=== PATIENT | male | born 1980 | race Caucasian/White ===

== ENCOUNTER 2016-05-19 23:55 | Emergency (ER) ==
[2016-05-20] MEDS ORDERED: XYLOCAINE 1%/EPI 1:100,000 ONE (00:27)
[2016-05-20] MEDS ORDERED: DERMABOND TOP ONE (00:28)
--- NOTE | 2016-05-20 00:29 | PROVIDER DOCUMENTATION ---
HPI-Rash/Wound/ReCheck - General Source: patient - History of Present Illness-Dermatology Location: reports: face (chin) Quality: reports: painful Severity: reports: mild Onset/Duration: reports: just prior to arrival Timing: reports: still present Context/Associated Symptoms: reports: laceration Identifiable cause?: Yes (grinder chipper) Locality of Occurance: Home Similar Symptoms Previously?: No Recently seen or treated by another doctor?: No <Aydee Bentley - Last Filed: 05/20/16 00:25> <Josue Hernández - Last Filed: 05/20/16 01:00> - General Chief Complaint: Laceration[s] Stated Complaint: lac to chin Time Seen by Provider: 05/20/16 00:14 Allergies/Adverse Reactions: Allergies Allergy/AdvReac Type Severity Reaction Status Date / Time No Known Allergies Allergy Verified 05/20/16 00:05 Home Medications: Home Medication List Medication Instructions Recorded Confirmed Last Taken Type ATORVAstatin [Lipitor] 40 mg PO QHS 02/11/16 05/20/16 05/19/16 05:00 History Aspirin [Aspir-Low] 81 mg PO DAILY 02/11/16 05/20/16 05/19/16 05:00 History Hydrocodone/Acetaminophen [[place] 1 tab PO TID PRN 02/11/16 05/20/16 05/19/16 19: 00 History 10-325 Tablet] Lisinopril 20 mg PO DAILY 02/11/16 05/20/16 05/19/16 05:00 History Metoprolol Succinate E.r. [Toprol 50 mg PO DAILY 02/11/16 05/20/16 05/18/16 21: 00 History Xl] Prasugrel [Effient] 10 mg PO DAILY 02/11/16 05/20/16 05/19/16 05:00 History Clindamycin [Cleocin] 150 mg PO Q6HR #20 capsule 05/20/16 Unknown Rx Mupirocin Calcium [Bactroban] 15 gm TP BID #1 cream..g. 05/20/16 Unknown Rx - History of Present Illness-Dermatology Nature of Presenting Problem: 35 year old M presents to the ED with a cc of a chin laceration. Pt states that he was using a grinder chipper and it bounced back and cut his chin. PT states that he is on a blood thinner and on a Aspirin regiment. (Aydee Bentley) Review of Systems - Adult - REVIEW OF SYSTEMS - ADULT Constitutional: denies: chills, fever Eyes: denies: blurred vision, double vision Ears, Nose, Mouth & Throat: reports: no symptoms reported Cardiovascular: reports: no symptoms reported Respiratory: reports: no symptoms reported Gastrointestinal: reports: no symptoms reported Genitourinary: reports: no symptoms reported Musculoskeletal: denies: muscle aches, muscle weakness Integumentary: reports: other (laceration). denies: skin sores/ulcer Neurological: reports: no symptoms reported Psychiatric: reports: no symptoms reported Endocrine: reports: no symptoms reported Hematologic/Lymphatic: reports: no symptoms reported Allergic/Immunologic: reports: no symptoms reported All Other Systems: Reviewed and Negative <Aydee Bentley - Last Filed: 05/20/16 00:25> Past History - Adult - PAST MEDICAL HISTORY-ADULT Review of Records: reports: Nursing Assessment Review, Medications Reviewed Major Childhood Illnesses: reports: denies history Cardiovascular: reports: PA - PRIOR SURGERIES/PROCEDURES Surgical/Procedure History: reports: cardiac stent, orthopedic (extremity) - IMMUNIZATION STATUS Childhood Immunizations: See Nurse Assessment Flu Vaccine: See Nurse Assessment - SOCIAL HISTORY Smoking: cigarettes, less than 1 pack/day Provider spent 3-5 mins advising pt. on dangers of tobacco.: Discussed manners to quit use, and f/u contacts for add'l counseling. Substance Use: none/never Alcohol Use Frequency: never <Ayede Bentley - Last Filed: 05/20/16 00:25> Physical Exam-General - PHYSICAL EXAM-ADULT Initial Vital Signs Reviewed: Yes - CONSTITUTIONAL General Appearance: appears well, alert, no apparent distress - RESPIRATORY Respiratory: no respiratory distress - CARDIOVASCULAR Cardiovascular: regular rate, rhythm - MUSCULOSKELETAL Extremity: normal inspection - PSYCHIATRIC Psych/Mental Status: normal mood/affect, normal thought content, normal thought process, oriented x 3 <Aydee Bentley - Last Filed: 05/20/16 00:25> Progress <Aydee Bentley - Last Filed: 05/20/16 00:25> <Josue Hernández - Last Filed: 05/20/16 01:00> - PLAN OF CARE/RESULTS Progress/Plan/Lab Results: Orders Category Date Time Status Laceration Set up DIRECTED Care 05/20/16 00:31 Active Cyanoacrylate Tissue Adhesive [Dermabond] Med 05/20/16 00:28 Discontinued 1 each TOP NOW ONE Lidocaine 1%/Epi 1:100,000 [Xylocaine 1%/Epi 1:100,000] Med 05/20/16 00:30 Discontinued 10 ml INJ NOW ONE Lidocaine 1%/Epi 1:100,000 [Xylocaine 1%/Epi 1:100,000] Med 05/20/16 00:27 Discontinued 50 ml .ROUTE .STK-MED ONE Vital Signs - 24 hr 05/19/16 23:57 Temperature 98.4 F Pulse Rate 87 Respiratory 18 Rate Blood Pressure 169/114 O2 Sat by Pulse 98 Oximetry (Josue Hernández) Procedures - LACERATION/WOUND REPAIR/FB Chin Wound Location: Other: chin Wound Length: 2 inch very shallow Wound's Depth, Shape: superficial Wound Explored/Foreign Body: clean Irrigated with Saline?: Yes Prepped with: Hibiclens Anesthetic: 1%, Lidocaine w/ Epinephrine Volume of Anesthetic (ml's): 5 Wound Repaired with: Dermabond Sterile Dressing Applied?: Yes <Josue Hernández - Last Filed: 05/20/16 01:00> Departure <Aydee Bentley - Last Filed: 05/20/16 00:25> - Departure Time of Disposition Order: 00:57 Certified Medical Emergency: Emergent <Josue Hernández - Last Filed: 05/20/16 01:00> - Departure DIAGNOSIS: Laceration Disposition: HOME 01 Condition: Good Additional Instructions: follow up with pcp if needed ED Follow Up Instructions: You have been treated by a care provider in the Emergency Department. These instructions are being provided to you so you can have an understanding of how to care for yourself upon discharge. Upon discharge from the Emergency Department, you are responsible for making arrangements for follow-up care by a physician of your choice. Take all prescribed medications as directed. Return to the Emergency Department immediately for any new or worsening symptoms. You may call the Physician Referral phone number at [phone] to obtain a list of Physicians who are taking new patients. Prescriptions: Clindamycin [Cleocin] 150 mg PO Q6HR #20 capsule Mupirocin Calcium [Bactroban] 15 gm TP BID #1 cream..g. Attestation - Scribe Verification/Attestation Scribe:: Aydee Bentley Acting as Scribe for:: Josue Hernández Scribe documention review:: This chart was documented by a scribe and accurately reflects the service the provider performed and the decisions made by the provider. <Aydee Bentley - Last Filed: 05/20/16 00:25> - Physician/ AONOP Attestation Patient care was provided by Advanced Practice Provider:: Yes Advanced Practice Provider:: Josue Hernández Advanced Practice Provider documentation review:: The Mid-level provider documentation, treatment plan and medical decision making was reviewed by the physician who agrees with all treatment and medical decision making by the P. <Josue Hernández - Last Filed: 05/20/16 01:00> Physician Attestation - Physician Attestation I, the provider, attest to the following statement:: Josue Hernández Physician documentation Attestation:: This documentation recorded by the scribe accurately reflects the service I personally performed and the decisions made by me. <Aydee Bentley - Last Filed: 05/20/16 00:25> - Physician Attestation I, the provider, attest to the following statement:: Josue Hernández Physician documentation Attestation:: This documentation recorded by the scribe accurately reflects the service I personally performed and the decisions made by me. <Josue Hernández - Last Filed: 05/20/16 01:00>
[2016-05-20] MEDS ORDERED: XYLOCAINE 1%/EPI 1:100,000 INJ ONE (00:30)
[2016-05-20 01:19] VITALS: BP 135/84
== END 2016-05-20 01:19 | disposition home or self-care (01) ==
LOC: ED 23:55
DX: S01.81XA Laceration without foreign body of other part of head, initial encounter (principal); W31.89XA Contact with other specified machinery, initial encounter; I25.2 Old myocardial infarction; F17.210 Nicotine dependence, cigarettes, uncomplicated; Z71.6 Tobacco abuse counseling; Z79.899 Other long term (current) drug therapy; Z79.82 Long term (current) use of aspirin